=== PATIENT | female | born 1975 | race Caucasian/White ===

== ENCOUNTER → 2021-01-06 11:35 | Outpatient (BNVA) | payer OTHER, SELFPAY | PROVIDERS: Family Provider Nurse Practitioner Family; Visit Provider Nurse Practitioner Family | DX: M54.9 Dorsalgia, unspecified (principal) | CPT/HCPCS: 81000 ==

== ENCOUNTER 2021-05-07 18:08 | Emergency (ER) | payer OTHER, SELFPAY ==
[2021-05-07 18:09] VITALS: BP 175/103; PULSE 78; RESP 15; TEMP 36.9; O2SAT 96; BMI 35.9
--- NOTE | 2021-05-07 18:12 | ECG_ITS ---
[facility] Test Date: 2021-05-07 Pat Name: Joann De Anda Department: Room: Gender: Female Loan Counselor: : 1975 Requested By: Eliu Fontanez Order Number: [id number] Roberto MD: Rufino Edmonds M.D. Measurements Intervals [place] Rate: 65 P: 38 HI: 153 QRS: -20 QRSD: 92 T: -1 QT: 428 QTc: 448 Interpretive Statements SINUS RHYTHM Compared to ECG 10/17/2018 22:53:16 No significant changes Electronically Signed On 05-08-2021 8:50:08 GENERAL HELPER by Rufino Edmonds M.D. [id number]
--- NOTE | 2021-05-07 18:13 | ED_ITS ---
Documented by User: Eliu Fontanez MD 05/07/21 18:14 HPI - General Adult General: Chief complaint: Chest Pain Stated complaint: HYPERTENSION Time Seen by Provider: 05/07/21 18:09 History of Present Illness: CC: Elevated BP HPI: []yo patient w/ x hx of HTN, [] presenting to the ED with complaints that his BP is not well controlled. Patient is on [] agents for BP control: []. Baseline daily BP noed at [] . However, the patient noticed today BP is uncontrolled. Denies chest pain, SOB, palpitation, N/V/D, pain radiating to the shoulder, headache, vision changes, LOC, or focal neurological deficits. Patient also denies light-headedness, syncope, vertigo abdominal pain, back pain. Tolerating PO meds without issues. Onset: [] day Duration: ongoing Location: home Severity: mild Associated symptoms: Deny chest pain, dyspnea, nausea, rash, palpitations or vomiting Review of Systems Const: Denies: fever(s) or chills Eyes: Denies: change in vision ENMT: Denies: mouth pain Card: Denies: chest pain or palpitations Resp: Denies: dyspnea or non-productive cough GI: Denies: abdominal pain, nausea, vomiting or diarrhea : Denies: dysuria Musc: Denies: extremity pain Skin/Breast: Denies: rash or new lesions Neuro: Denies: weakness in extremities Psych: Reports: other (Normal mood) Burt/Lymph: Denies: easy bruising PFSH ED PFSH: Social History Smoking and tobacco status: never smoked Second hand smoke exposure: No Smoking risk assessment/counseling performed?: No Alcohol intake: never Desire information about alcohol rehabilitation?: No Counseling given: No Desire information about substance/drug rehabilitation?: No Counseling given: No Adopted: No Caregiver/support person: No Lives independently: No Housing: House Marital status: Number of children: 3 Current occupational status: employed Physical Exam Const: COMMON NORMALS: alert HENMT: COMMON NORMALS: atraumatic HEAD & SCALP: atraumatic MOUTH: moist mucous membranes not abnormal Eye: COMMON NORMALS: EOMs intact bilaterally and conjunctivae normal CONJUNCTIVA: Yes conjunctivae normal Neck/C-Spine: COMMON NORMALS: full ROM and supple Resp: COMMON NORMALS: normal respiratory effort and clear to auscultation bilaterally AUSCULTATION: clear to auscultation bilaterally Cardio: COMMON NORMALS: regular rate RATE: regular rate GI: COMMON NORMALS: Soft to palpation and non-tender PALPATION: Yes Soft to palpation Extremity: COMMON NORMALS: full ROM Neuro: SENSORIUM/ORIENTATION: Yes alert MOTOR EXAM: No Abnormal motor strength present and Other motor observations present (no focal motor deficits) Psych: COMMON NORMALS: speech normal SPEECH: Yes normal speech MOOD & AFFECT: Yes euthymic mood Course Vital Signs: Vital signs: Vital Signs Temperature 98.4 F 05/07/21 18:09 Pulse Rate 78 05/07/21 18:09 Respiratory Rate 15 05/07/21 18:09 Blood Pressure 175/103 05/07/21 18:09 Pulse Oximetry 96 05/07/21 18:09 MDM - General Adult Medical Decision Making []yo patient w/ hx of HTN on [] medications presenting to the ED with high BP readings x 1 day without other medical complaints. BP in the ED of []. Rest of exam including full neuro exam intact. Given presentation, history and exam, I do not suspect aortic dissection, hypertensive encephalopathy, intracranial hemorrhage, ACS, TIA/CVA, flash pulmonary edema. Intervention: Nifedipine 30mg x 1 PRN elevated BP [time] On reassessment, BP improved to []. Patient continues to be symptom-free at this time. Do not suspect an emergent cause. Discussed with the patient the importance of logging BPs and following up with his PCP for adjustment of BP if BP continues to be persistently high. Given return instructions. Rx: Amlodipine 10mg QDaily x 7 days Based on history, exam, vital signs, and work up (as indicated) I do not suspect an ongoing emergent medical condition, and I believe the patient is safe for discharge and outpatient follow-up. The plan of care was discussed with the patient and all questions were answered. The patient agrees with the plan of care and is discharged in stable condition with verbal and written instructions, and verbalized understanding and ability to comply. I discussed the diagnosis and treatment plan at length with the patient. The patient understands signs and symptoms (including those which are new or worsening) which should prompt return to the ED. The patient is to seek prompt outpatient follow-up as noted verbally and/or in the discharge instructions. At the time of discharge the patient is well-appearing, well-hydrated, non-toxic, and assures appropriate follow-up as an outpatient. Lab Data : 05/07/21 18:45 05/07/21 18:45 Laboratory Results WBC 9.3 10^3/uL (4.0-10.0) 05/07/21 18:45 RBC 5.33 10^6/uL (4.1-5.3) H 05/07/21 18:45 Hgb 13.5 g/dL (11.5-15.3) 05/07/21 18:45 Hct 42.9 % (37.0-47.0) 05/07/21 18:45 MCV 80.5 fl (81-99) L 05/07/21 18:45 MCH 25.3 pg (28.0-34.0) L 05/07/21 18:45 MCHC 31.5 g/dL (30.0-36.0) 05/07/21 18:45 RDW 12.9 % (12.1-15.1) 05/07/21 18:45 Plt Count 347 10^3/cmm (130-400) 05/07/21 18:45 MPV 9.6 fL (7.4-10.4) 05/07/21 18:45 Neut % (Auto) 63.5 % 05/07/21 18:45 Lymph % (Auto) 26.5 % 05/07/21 18:45 [place] % (Auto) 7.0 % 05/07/21 18:45 Eos % (Auto) 2.0 % 05/07/21 18:45 Baso % (Auto) 0.6 % 05/07/21 18:45 Neut # (Auto) 5.90 10^3/uL (1.8-7.7) 05/07/21 18:45 Lymph # (Auto) 2.5 10^3/uL (0.8-4.8) 05/07/21 18:45 [place] # (Auto) 0.7 10^3/uL (0.2-0.9) 05/07/21 18:45 Eos # (Auto) 0.2 10^3/uL (0.0-0.8) 05/07/21 18:45 Baso # (Auto) 0.1 10^3/uL (0.0-0.1) 05/07/21 18:45 Nucleated RBC % (auto) 0 % 05/07/21 18:45 Nucleated RBCs # 0.0 /100WBC 05/07/21 18:45 Discharge Plan Discharge Clinical Impression: Hypertension Condition: Stable Prescriptions: No Action amoxicillin 875 mg tablet 875 mg PO BID 10 Days Qty: 20 0RF Referrals: Aysha Carrasquillo FNP [Referring] - Discharge Diet: Advance as tolerated Discharge Activity: Increase activity as tolerated Patient Instructions: Hypertension (ED) Activity Restrictions/Additional Instructions: You need to follow-up with your primary care provider for further adjustment of your blood pressure. Your blood pressure puts you at risk for developing strokes and heart attack. Therefore it is very important for you to follow-up with this number to see if the numbers improve gradually. Because blood pressure adjustment is a gradual process, were not able to change it in 1 visit. Therefore please log your blood pressure and follow-up with your primary care provider in the next 72 hours for further adjustment of your blood pressures. Our immigration case manager will have you follow-up with a primary care provider in the next few days. You would be expected to have a phone call with our immigration case manager who will put you on the schedule. You can expect a call from us in the next 2-3 days. Coding Level of Care Code ED Director Export for Chg Fwd Exam Comprehensive Documented by User: CARRI Lagunas 05/07/21 19:22 HPI - General Adult General: Chief complaint: Chest Pain Stated complaint: HYPERTENSION Time Seen by Provider: 05/07/21 18:09 [facility] ED PFSH: Social History Smoking and tobacco status: never smoked Second hand smoke exposure: No Smoking risk assessment/counseling performed?: No Alcohol intake: never Desire information about alcohol rehabilitation?: No Counseling given: No Desire information about substance/drug rehabilitation?: No Counseling given: No Adopted: No Caregiver/support person: No Lives independently: No Housing: House Marital status: Number of children: 3 Current occupational status: employed Course Vital Signs: Vital signs: Vital Signs Temperature 98.4 F 05/07/21 18:09 Pulse Rate 78 05/07/21 18:09 Respiratory Rate 15 05/07/21 18:09 Blood Pressure 175/103 05/07/21 18:09 Pulse Oximetry 96 05/07/21 18:09 MDM - General Adult Medical Decision Making This is the incorrect patient document for ED visit on May 07, 2021. Please see other document on same date for further details. Lab Data : 05/07/21 18:45 05/07/21 18:45 Laboratory Results WBC 9.3 10^3/uL (4.0-10.0) 05/07/21 18:45 RBC 5.33 10^6/uL (4.1-5.3) H 05/07/21 18:45 Hgb 13.5 g/dL (11.5-15.3) 05/07/21 18:45 Hct 42.9 % (37.0-47.0) 05/07/21 18:45 MCV 80.5 fl (81-99) L 05/07/21 18:45 MCH 25.3 pg (28.0-34.0) L 05/07/21 18:45 MCHC 31.5 g/dL (30.0-36.0) 05/07/21 18:45 RDW 12.9 % (12.1-15.1) 05/07/21 18:45 Plt Count 347 10^3/cmm (130-400) 05/07/21 18:45 MPV 9.6 fL (7.4-10.4) 05/07/21 18:45 Neut % (Auto) 63.5 % 05/07/21 18:45 Lymph % (Auto) 26.5 % 05/07/21 18:45 [place] % (Auto) 7.0 % 05/07/21 18:45 Eos % (Auto) 2.0 % 05/07/21 18:45 Baso % (Auto) 0.6 % 05/07/21 18:45 Neut # (Auto) 5.90 10^3/uL (1.8-7.7) 05/07/21 18:45 Lymph # (Auto) 2.5 10^3/uL (0.8-4.8) 05/07/21 18:45 [place] # (Auto) 0.7 10^3/uL (0.2-0.9) 05/07/21 18:45 Eos # (Auto) 0.2 10^3/uL (0.0-0.8) 05/07/21 18:45 Baso # (Auto) 0.1 10^3/uL (0.0-0.1) 05/07/21 18:45 Nucleated RBC % (auto) 0 % 05/07/21 18:45 Nucleated RBCs # 0.0 /100WBC 05/07/21 18:45 Discharge Plan Discharge Clinical Impression: Hypertension Condition: Stable Prescriptions: No Action amoxicillin 875 mg tablet 875 mg PO BID 10 Days Qty: 20 0RF Referrals: Aysha Carrasquillo FNP [Referring] - Discharge Diet: Advance as tolerated Discharge Activity: Increase activity as tolerated Patient Instructions: Hypertension (ED) Activity Restrictions/Additional Instructions: You need to follow-up with your primary care provider for further adjustment of your blood pressure. Your blood pressure puts you at risk for developing strokes and heart attack. Therefore it is very important for you to follow-up with this number to see if the numbers improve gradually. Because blood pressure adjustment is a gradual process, were not able to change it in 1 visit. Therefore please log your blood pressure and follow-up with your primary care provider in the next 72 hours for further adjustment of your blood pressures. Our immigration case manager will have you follow-up with a primary care provider in the next few days. You would be expected to have a phone call with our immigration case manager who will put you on the schedule. You can expect a call from us in the next 2-3 days. Coding Level of Care Code ED Director Export for [place]ilee Fwd Exam Comprehensive
--- NOTE | 2021-05-07 18:34 | W.ED.GENADLT ---
HPI - General Adult General: Chief complaint: Chest Pain Stated complaint: HYPERTENSION Time Seen by Provider: 05/07/21 18:09 History of Present Illness: Patient is a 45-year-old female who comes to the ED with hypertension, headache and chest pressure. Patient comes in via ambulance and her blood pressure when taken by EMS had the systolic over 200 and the diastolic was over 110. They gave patient IV labetalol and Zofran while in route. For the past 2 days patient says she has been having some on and off chest pressure. It starts while at rest or on exertion. Denies any shortness of breath, fevers, cough or any other upper respiratory symptoms. Patient says she was on a blood pressure medication but she has been off of it now for a while. Patient endorses having some dysuria and urine frequency which she describes her common symptoms she has when she gets UTIs. Patient endorses having history of anxiety and takes Valium as needed for anxiety attacks. She has not taken any Valium within the last 24 hours. Associated symptoms: Reports chest pain (chest pressure) and headache(s); Deny dyspnea, nausea, rash, palpitations or vomiting Review of Systems Const: Denies: fever(s), chills or fatigue Eyes: Denies: change in vision or eye discomfort ENMT: Denies: throat pain, odynophagia, nasal discharge or nasal congestion Card: Reports: chest pain (chest pressure); Denies: palpitations, edema, swelling of feet/ankles, dyspnea on exertion or orthopnea Resp: Denies: dyspnea, productive cough or non-productive cough GI: Denies: abdominal pain, nausea, vomiting, diarrhea, constipation or hematochezia : Reports: dysuria and urinary frequency; Denies: flank pain or hematuria Musc: Denies: neck pain, back pain or extremity swelling Skin/Breast: Denies: rash or new lesions Neuro: Reports: headache(s); Denies: numbness in extremities or weakness in extremities Psych: Reports: anxiety PFSH ED PFSH: Medical History No pertinent past medical history Surgical History No pertinent past surgical history Social History Smoking and tobacco status: never smoked Second hand smoke exposure: No Smoking risk assessment/counseling performed?: No Alcohol intake: never Desire information about alcohol rehabilitation?: No Counseling given: No Desire information about substance/drug rehabilitation?: No Counseling given: No Adopted: No Caregiver/support person: No Lives independently: No Housing: House Marital status: Number of children: 3 Current occupational status: employed Physical Exam Const: COMMON NORMALS: no acute distress, patient oriented x3 and alert GENERAL APPEARANCE: cooperative and comfortable HENMT: COMMON NORMALS: normocephalic HEAD & SCALP: normocephalic MOUTH: Normal oral and palatal mucosa present THROAT: posterior oropharynx normal and uvula midline Neck/C-Spine: COMMON NORMALS: supple GENERAL: Yes normal visual inspection Resp: COMMON NORMALS: normal respiratory effort, No retractions, No use of accessory muscles and clear to auscultation bilaterally AUSCULTATION: clear to auscultation bilaterally Cardio: COMMON NORMALS: regular rate, regular rhythm, S1 normal heart sound present, S2 normal heart sound present, No gallops present (Cardio), No clicks present (Cardio), No murmurs present (Cardio) and Peripheral pulses 2+ throughout RATE: regular rate RHYTHM: regular rhythm HEART SOUNDS: S1 normal heart sound present and S2 normal heart sound present PERIPHERAL PULSES: Peripheral pulses 2+ throughout GI: COMMON NORMALS: Normal to inspection, nondistended, normoactive bowel sounds present, Soft to palpation, non-tender and no masses PALPATION: Yes Soft to palpation : COMMON NORMALS: Yes no CVA tenderness BLADDER/KIDNEY EXAM: Yes no CVA tenderness Back/Pelvis: COMMON NORMALS: no CVA tenderness Extremity: COMMON NORMALS: normal to inspection and no pedal edema Neuro: COMMON NORMALS: patient oriented x3, CN's II-XII intact bilaterally, moves all extremities, no focal motor deficits and no sensory deficits noted SENSORIUM/ORIENTATION: Yes alert SENSORY EXAM: Yes extremities (intact) MOTOR EXAM: 5/5 motor strength present throughout Skin: GENERAL SKIN EXAM: dry skin Course Reevaluation(s): Reevaluation #1: After patient received Ativan here in the ED her symptoms improved. Patient was ready to go home and rest. Time: 21:15 Vital Signs: Vital signs: Vital Signs Temperature 98.4 F 05/07/21 18:09 Pulse Rate 87 05/07/21 21:19 Respiratory Rate 15 05/07/21 21:19 Blood Pressure 133/71 05/07/21 21:19 Pulse Oximetry 93 05/07/21 21:19 MDM - General Adult Medical Decision Making Patient is a 45-year-old female comes to the ED via EMS with elevated blood pressure, headache and some chest pressure. Patient has a history of anxiety and symptoms have been on and off for the past couple days. Patient endorses having history of anxiety and takes Valium as needed for anxiety attacks. EMS gave patient a dose of labetalol and Zofran during transport. Vitals are stable. Patient's blood pressure at its highest here in the ED was 175/143 and before discharge it was 133/71. Appears nontoxic in no acute distress or pain. Exam is benign. CBC and BMP were unremarkable. Troponin negative. EKG showed normal sinus rhythm with no ST segment elevation or depression seen. Chest x-ray shows no acute findings. CT of head shows no acute findings. Patient was given a dose of Ativan while here in the ED and her symptoms improved. Patient was diagnosed with noncardiac chest pain and hypertension and was discharged home. She was told to follow-up with her PCP in the next several days to have blood pressure rechecked and to be reevaluated. Return to ED precautions given. Patient understood and agree with plan. Lab Data I reviewed the patient's lab results. : 05/07/21 18:45 05/07/21 18:[address] 05/07/21 18:35 IMPRESSION: No evidence for acute infarct, mass or hemorrhage. Chest X-Ray 05/07/21 18:53 IMPRESSION: No active disease. Laboratory Results WBC 9.3 10^3/uL (4.0-10.0) 05/07/21 18:45 RBC 5.33 10^6/uL (4.1-5.3) H 05/07/21 18:45 Hgb 13.5 g/dL (11.5-15.3) 05/07/21 18:45 Hct 42.9 % (37.0-47.0) 05/07/21 18:45 MCV 80.5 fl (81-99) L 05/07/21 18:45 MCH 25.3 pg (28.0-34.0) L 05/07/21 18:45 MCHC 31.5 g/dL (30.0-36.0) 05/07/21 18:45 RDW 12.9 % (12.1-15.1) 05/07/21 18:45 Plt Count 347 10^3/cmm (130-400) 05/07/21 18:45 MPV 9.6 fL (7.4-10.4) 05/07/21 18:45 Neut % (Auto) 63.5 % 05/07/21 18:45 Lymph % (Auto) 26.5 % 05/07/21 18:45 [place] % (Auto) 7.0 % 05/07/21 18:45 Eos % (Auto) 2.0 % 05/07/21 18:45 Baso % (Auto) 0.6 % 05/07/21 18:45 Neut # (Auto) 5.90 10^3/uL (1.8-7.7) 05/07/21 18:45 Lymph # (Auto) 2.5 10^3/uL (0.8-4.8) 05/07/21 18:45 [place] # (Auto) 0.7 10^3/uL (0.2-0.9) 05/07/21 18:45 Eos # (Auto) 0.2 10^3/uL (0.0-0.8) 05/07/21 18:45 Baso # (Auto) 0.1 10^3/uL (0.0-0.1) 05/07/21 18:45 Nucleated RBC % (auto) 0 % 05/07/21 18:45 Nucleated RBCs # 0.0 /100WBC 05/07/21 18:45 Sodium 138 mmol/L (136-145) 05/07/21 18:45 Potassium 3.7 mmol/L (3.5-5.1) 05/07/21 18:45 Chloride 104 mmol/L (98-107) 05/07/21 18:45 Carbon Dioxide 21 mmol/L (22-29) L 05/07/21 18:45 Anion Gap 16.7 (5-19) 05/07/21 18:45 BUN 9 mg/dL (6-20) 05/07/21 18:45 Creatinine 0.6 mg/dL (0.5-0.9) 05/07/21 18:45 GFR Calculation 109.1 mL/min (90-130) 05/07/21 18:45 Glucose 134 mg/dL (65-115) H 05/07/21 18:45 Calculated Osmolality 287 mOsm/kg (285-295) 05/07/21 18:45 Calcium 8.5 mg/dL (8.5-10.5) 05/07/21 18:45 Troponin T Baseline 6 ng/L (0-10) 05/07/21 18:45 Troponin T 120 Minute 6.00 ng/L (0-10) 05/07/21 20:46 Delta Troponin T 0 ABS# (0-10) 05/07/21 20:46 HCG, Qual Negative (Negative) 05/07/21 18:45 Urine Color Colorless (Yellow) 05/07/21 18:34 Urine Appearance Clear (CLEAR) 05/07/21 18:34 Urine pH 6 (5-7) 05/07/21 18:34 Ur Specific [place] 1.010 (1.005-1.030) 05/07/21 18:34 Urine Protein Neg (Negative) 05/07/21 18:34 Urine Glucose (UA) Norm (Normal) 05/07/21 18:34 Urine Ketones Negative (Negative) 05/07/21 18:34 Urine Blood 2+ (Negative) H 05/07/21 18:34 Urine Nitrate Negative (Negative) 05/07/21 18:34 Urine Bilirubin Neg (Negative) 05/07/21 18:34 Urine Urobilinogen Norm mg/dL (Negative) 05/07/21 18:34 Ur Leukocyte Esterase Negative (Negative) 05/07/21 18:34 Urine RBC 0-4 /hpf (0-2) H 05/07/21 18:34 Urine WBC 0-4 /hpf (0-5) H 05/07/21 18:34 Ur Squamous Epith Cells 0-4 /hpf (0-5) H 05/07/21 18:34 Amorphous Sediment Not Reportable 05/07/21 18:34 Urine Bacteria Trace /hpf (NONE) 05/07/21 18:34 EKG Data EKG 1: EKG interpretation date: 05/07/21 Interpretation: Normal sinus rhythm, 65 bpm, no ST segment elevation or depression seen. Computer generated interpretation: Head CT 05/07/21 18:35 IMPRESSION: No evidence for acute infarct, mass or hemorrhage. Chest X-Ray 05/07/21 18:53 IMPRESSION: No active disease. EKG 2: EKG interpretation date: 05/07/21 EKG interpretation time: 20:40 Interpretation: Sinus rhythm, 65 bpm, no ST segment elevation or depression seen. Computer generated interpretation: Head CT 05/07/21 18:35 IMPRESSION: No evidence for acute infarct, mass or hemorrhage. Chest X-Ray 05/07/21 18:53 IMPRESSION: No active disease. Discharge Plan Discharge Patient Disposition: Home Clinical Impression: Non-cardiac chest pain, Hypertension Condition: Stable Prescriptions: No Action amoxicillin 875 mg tablet 875 mg PO BID 10 Days Qty: 20 0RF Discharge Orders: Discharge ED (Routine); Ordered 05/07/21 Ordered By: Sidney Romero Referrals: Aysha Carrasquillo FNP [Referring] - Discharge Diet: Regular Discharge Activity: Increase activity as tolerated Activity Restrictions/Additional Instructions: You need to follow-up with your primary care provider for further adjustment of your blood pressure. Your blood pressure puts you at risk for developing strokes and heart attack. Therefore please log your blood pressure and follow-up with your primary care provider in the next 72 hours for further blood pressure management. Return to the ER or your medical provider if condition worsens. Please read and understand discharge instructions. Coding Level of Care Code ED Recreational Programs Director for Chg Fwd Exam Comprehensive
--- NOTE | 2021-05-07 18:35 | CTR_ITS ---
PROCEDURE INFORMATION: Exam: CT Head Without Contrast Exam date and time: 05/07/2021 6:35 PM Age: 45 years old Clinical indication: Pain; Headache; Additional info: Hypertensive crisis with a headache TECHNIQUE: Imaging protocol: Computed tomography of the head without contrast. Radiation optimization: All CT scans at this facility use at least one of these dose optimization techniques: automated exposure control; mA and/or kV adjustment per patient size (includes targeted exams where dose is matched to clinical indication); or iterative reconstruction. COMPARISON: CT head wo con* [id number] 10/17/2018 10:32 PM RADIATION DOSE METRICS: Total DLP (mGy-cm): 889.01 FINDINGS: The ventricles, sulci and basilar cisterns appear normal for the patient's stated age. There is no evidence of mass, hemorrhage or infarct. No extra-axial fluid collections are identified. There is no midline shift. There is no evidence of fracture. The visualized paranasal sinuses are well-aerated. CT/CT head wo con* [id number] IMPRESSION: No evidence for acute infarct, mass or hemorrhage.
--- NOTE | 2021-05-07 18:53 | XRR_ITS ---
PROCEDURE INFORMATION: Exam: XR Chest Exam date and time: 05/07/2021 6:53 PM Age: 45 years old Clinical indication: Pain; Patient HX: Chest pressure 2 day, high blood pressure TECHNIQUE: Imaging protocol: XR of the chest. Views: 1 view. COMPARISON: [place] Chest 1 [place] [id number] 10/17/2018 10:18 PM FINDINGS: The lungs are clear of infiltrate. There are no pleural effusions or pneumothorax. The heart size and pulmonary vascularity are normal. XR/XR chest 1V portable [id number] IMPRESSION: No active disease.
[2021-05-07 19:03] LABS: Basophils # 0.1 10^3/uL (0.0-0.1); Basophils % 0.6 %; Eosinophils # 0.2 10^3/uL (0.0-0.8); Hematocrit 42.9 % (37.0-47.0); Hemoglobin 13.5 g/dL (11.5-15.3); Lymphocytes # 2.5 10^3/uL (0.8-4.8); Lymphocytes % 26.5 %; Mean Corpuscular HGB Conc 31.5 g/dL (30.0-36.0); Mean Corpuscular Hemoglobin 25.3 pg (28.0-34.0); Mean Corpuscular Volume 80.5 fl (81-99); Mean Platelet Volume 9.6 fL (7.4-10.4); Monocytes # 0.7 10^3/uL (0.2-0.9); Neutrophils % 63.5 %; Nucleated Red Blood Cells % 0 %; Platelet Count 347 10^3/cmm (130-400); Red Blood Count 5.33 10^6/uL (4.1-5.3); Red Cell Distribution Width 12.9 % (12.1-15.1); White Blood Count 9.3 10^3/uL (4.0-10.0)
[2021-05-07 19:22] LABS: HCG, Serum Qual Negative (Negative)
[2021-05-07 19:49] LABS: Anion Gap 16.7 (5-19); Blood Urea Nitrogen 9 mg/dL (6-20); Calcium 8.5 mg/dL (8.5-10.5); Carbon Dioxide 21 mmol/L (22-29); Chloride 104 mmol/L (98-107); Glomerular Filtration Rate 109.1 mL/min (90-130); Glucose 134 mg/dL (65-115); Osmolality Calculated 287 mOsm/kg (285-295); Potassium 3.7 mmol/L (3.5-5.1); Sodium 138 mmol/L (136-145)
[2021-05-07 19:50] LABS: Troponin(5th) Baseline 6 ng/L (0-10)
[2021-05-07 19:53] LABS: Urine Appearance Clear (CLEAR); Urine Color Colorless (Yellow)
[2021-05-07 19:54] LABS: Add Urine Culture? No; Add Urine Microscopic? YES; Bacteria Urine TRACE /hpf; Bilirubin Urine Neg (Negative); Blood Urine 2+ (Negative); Glucose Urine UA Norm (Normal); Ketones Urine Negative (Negative); Leukocyte Esterase Urine Negative (Negative); Nitrate Urine Negative (Negative); Protein Urine Neg (Negative); RBC Urine 0-4 /hpf (0-2); Squamous Epithelial Cell Urine 0-4 /hpf (0-5); Urobilinogen Urine Norm (Negative); WBC Urine 0-4 /hpf (0-5); pH Urine 6 (5-7)
--- NOTE | 2021-05-07 20:22 | ECG_ITS ---
[facility] Test Date: 2021-05-07 Pat Name: Joann De Anda Department: Room: Gender: Female Tobacco Checkout Clerk: : 1975 Requested By: Eliu Fontanez Order Number: [id number] Pardeep MD: Rufino Edmonds M.D. Measurements Intervals [place] Rate: 65 P: 60 NE: 156 QRS: -30 QRSD: 101 T: 11 QT: 424 QTc: 443 Interpretive Statements SINUS RHYTHM BORDERLINE LEFT AXIS DEVIATION [QRS AXIS < -20] Compared to ECG 05/07/2021 18:42:10 No significant changes Electronically Signed On 05-08-2021 9:01:02 DYNAMOMETER REPAIRER by Rufino Edmonds M.D. [id number]
[2021-05-07] MEDS: LORazepam 2 mg/mL INJ 1 mL 1 MG IVP (20:50)
[2021-05-07 20:51] VITALS: BP 126/66; PULSE 84; RESP 23; O2SAT 98
[2021-05-07 21:19] VITALS: BP 133/71; PULSE 87; RESP 15; O2SAT 93
[2021-05-07 22:06] LABS: Troponin 5 2HR Delta 0 ABS# (0-10)
--- NOTE | 2021-05-20 09:56 | DCPLANNER ---
late entry - case packer had message to speak with patient about getting established with a primary care physician. credit relationship manager unable to speak with patient at this time, and unable to leave a message.
== END 2021-05-07 21:22 | disposition home or self-care (01) ==
PROVIDERS: Emergency Medicine; Emergency Provider Physician Assistant
DX: R07.89 Other chest pain (principal); I10 Essential (primary) hypertension
CPT/HCPCS: 36415; 70450; 71045; 80048; 81001; 84484; 84703; 85025; 93005; 96374; 99284; J2060